=== PATIENT | female | born 1985 | race Caucasian/White ===

== ENCOUNTER 2021-02-01 07:31 | Inpatient (IN) | payer OTHER ==
--- NOTE | 2021-02-01 08:23 | P.HPOB ---
History of Present Illness H&P Date: 02/01/21 Chief Complaint: I'm having a baby This is a 36-year-old white female 2 para 1001 EDC 02/05/2021 at 39-3/7 weeks' gestation. Patient states her labor started and approximately 4:00 this morning. She presented to the triage area with a urge to push. She was uncerta in if her water had broken. Fetus had been active throughout the . Past medical history is significant for asthma and a "muscle disorder". Patient was tested positive for Covid on 01/25/2021. Current medications albuterol inhaler when necessary, carbidopa-levodopa 10/100 mg daily. Past surgical history laparoscopy years ago. Social history patient is , her 's name is Michel. She denies tobacco alcohol or drug use. Past obstetric history patient has followed with a Dr. Mariana Gimenez in [facility] for her care. She is unknown to me or this [facility]. She had a vaginal delivery in August 2018 of a 7 lbs. 8 oz. male infant, uncomplicated. ALLERGIES none known. Family history unremarkable. On exam patient is 5 foot 5 inches, 206 pounds. Vital signs are stable and she is afebrile. In the triage area she has an anterior lip and is very quickly taken to a delivery room. heart tones reassuring. Impression: 39-3/7 weeks intrauterine , care elsewhere, advanced maternal age, recent Covid positive testing, in active labor, delivery imminent. Plan: Anticipate normal spontaneous vaginal delivery. records will be obtained from primary physician's office. Review of Systems Constitutional: Reports as per HPI Past Medical History Past Medical History: Asthma Additional Past Medical History / Comment(s): "muscle disorder" Medications and Allergies Home Medications and Allergies Comment(s): carbidopa-levodopa 10/100 mg daily, albuterol inhaler prn Exam see dictation Assessment and Plan Assessment: 39-3/7 weeks intrauterine , advanced maternal age, delivery imminent. care elsewhere, no records available at this time. Plan: Coated precautions. Anticipate normal spontaneous vaginal delivery.
[2021-02-01] MEDS ORDERED: ACETAMINOPHEN TAB 325 MG TAB PO PRN (08:26)
[2021-02-01] MEDS ORDERED: LANOLIN CREAM 5 GM TUBE TOPICAL PRN (08:26)
[2021-02-01] MEDS ORDERED: diphenhydrAMINE 50 MG CAP PO PRN (08:26)
[2021-02-01] MEDS ORDERED: diphenhydrAMINE 25 MG CAP PO PRN (08:26)
[2021-02-01] MEDS ORDERED: HYDROCORTISONE 2.5% RECTAL CREAM 30 GM TUBE RECTAL PRN (08:26)
[2021-02-01] MEDS ORDERED: diphenhydrAMINE 50 MG/ML 1 ML VIAL IVP PRN ×2 (08:26)
[2021-02-01] MEDS ORDERED: ZOLPIDEM 5 MG TAB PO PRN (08:26)
[2021-02-01] MEDS ORDERED: BENZOCAINE/MENTHOL SPRAY 1 GM/SPRAY AEROSOL TOPICAL PRN (08:26)
[2021-02-01] MEDS ORDERED: SIMETHICONE 80 MG CHEWABLE PO PRN (08:26)
--- NOTE | 2021-02-01 08:26 | P.PROBDLV ---
Vaginal Delivery Note - . Vaginal Delivery Note: This is a 36-year-old white female 2 para 1001 EDC 02/05/2021 at 39-3/7 weeks' gestation. Patient presented in active spontaneous labor. She was tested positive for Covid 5 days ago. care elsewhere, no records available at this time. Please see dictated history and physical for details. In the triage area patient was anterior lip. She was taken to a labor and delivery suite. Perineal body was prepped and draped in usual sterile fashion. With excellent maternal expulsive efforts the 's head delivered occiput anterior and restituted accordingly. There was no nuchal cord noted. The right or anterior shoulder was delivered easily from underneath the pubic symphysis at which time the oropharynx, nasopharynx, and external nares were bulb suctioned. Patient officially delivered a liveborn female infant at 0751 hours. Umbilical cord was doubly clamped and ligated, she was handed to waiting nurses for evaluation where scores of 9 and 9 at one and 5 minutes respectively were given. Infant weighed 3180 g or 7 lbs. 0 oz. Placenta delivered spontaneously, it was inspected and noted to be intact with trivascular cord at 0753 hours. There was a true knot in the cord. It was sent to pathology for further evaluation. The uterus is then massaged. Careful inspection of cervix, vagina, perineum, periurethral, and perirectal areas revealed a small midline first-degree perineal laceration. This was repaired in the usual fashion using 1% lidocaine and 3-0 rapide suture. All sponge needle and enhancement counts are correct. Patient is allowed to begin the bonding experience in the LDR with her infant daughter. records are being requested from primary local owner operator truck driver in [facility].
[2021-02-01] MEDS ORDERED: ALBUTEROL HFA INHALER INHALATION STA (08:38)
[2021-02-01 09:08] VITALS: RESP 16
[2021-02-01] MEDS: IBUPROFEN 600 MG TAB PO SCH ×2 (09:56→17:14)
[2021-02-01] MEDS ORDERED: OXYTOCIN 30 UNITS/500 ML NS 30 UNIT in SALINE 1 500ML.BAG IV SCH (10:45)
[2021-02-01] MEDS: SENNOSIDES-DOCUSATE SODIUM 1 EACH TAB PO SCH (20:38)
[2021-02-02] MEDS: IBUPROFEN 600 MG TAB PO SCH ×4 (01:14→10:34)
[2021-02-02 06:43] LABS: Basophils % (A) 0 %; Eosinophils # (A) 0.2 k/uL (0-0.7); Eosinophils % (A) 1 %; HCT 29.5 % (34.0-46.0); HGB 10.1 gm/dL (11.4-16.0); Lymphocytes # (A) 3.1 k/uL (1.0-4.8); Lymphocytes % (A) 25 %; MCH 28.4 pg (25.0-35.0); MCV 83.6 fL (80.0-100.0); Mean Platelet Volume 8.7; Monocytes # (A) 0.9 k/uL (0-1.0); Monocytes % (A) 7 %; Neutrophils # (A) 8.3 k/uL (1.3-7.7); Neutrophils % (A) 66 %; Platelet Count 244 k/uL (150-450); RBC 3.54 m/uL (3.80-5.40); RDW 14.8 % (11.5-15.5); WBC 12.7 k/uL (3.8-10.6)
[2021-02-02 08:28] VITALS: BP 126/78; PULSE 90; TEMP 98.1
--- NOTE | 2021-02-02 08:36 | P.DS ---
Providers Date of admission: 02/01/21 07:37 Expected date of discharge: 02/02/21 Attending physician: Indira Roberson Primary care physician: Stated None Hospital Course: This is a 36-year-old white female 2 para 1001 EDC 02/05/2021 at 39-3/7 weeks' gestation. Patient received her care at a different institution, but presented here in active labor with anterior rim. She has a history of positive culture testing on 01/25/2021, as has her . otherwise unremarkable, blood type O+, rubella status immune, group B strep cultures negative. Please see dictated history and physical for details. Patient very quickly became completely dilated and vaginally delivered a liveborn female infant with scores of 9 and 9 at one and 5 minutes respectively. Infant weighed 3180 g or 7 lbs. 0 oz. Total estimated blood loss 200 mL, small first-degree perineal laceration easily repaired, please see dictated delivery note for details. This morning the patient and her infant are doing well. The patient is voiding, ambulating, passing flatus without difficulty. Vital signs are stable and she is afebrile. She is doing well from the [place] it perspective, no shortness of breath, respiratory rate 16, pulse ox on room air 97%. Breasts are not engorged. Fundus is firm and in the midline, symmetric and 18 week size. Extremities negative for edema. Patient is judged to be in good condition for d ischarge home. She will follow-up with her own private event planning manager in 6 weeks. I have reminded her no intercourse, tampons or douching. She will use [id number] Advil or Aleve, or Motrin as needed for pain. She will call with any fevers shakes or chills, foul smelling or copious lochia, with the passage of large blood clots, with any pain not alleviated by [id number] products, or i ndeed with any concerns. She will continue isolation at home until 10 days post Covid diagnosis. Assessment: Well day #1 Patient Condition at Discharge: Good Plan - Discharge Summary Discharge Rx Participant: No New Discharge Prescriptions: No Action Carbidopa/Levodopa [Carbidopa-Levodopa 10-100 Tab] 1 each PO Discharge Medication List Carbidopa/Levodopa [Carbidopa-Levodopa 10-100 Tab] 1 each PO 04/08/21 [History] Discharge Disposition: HOME SELF-CARE
[2021-02-02] MEDS: SENNOSIDES-DOCUSATE SODIUM 1 EACH TAB PO SCH (10:33)
== END 2021-02-02 10:50 | disposition home or self-care (01) | DRG 805 ==
LOC: FBPOP 07:31 → 4FBP 07:37
PROVIDERS: ADMIT Obstetrics & Gynecology; ATTEND Obstetrics & Gynecology
PROC: 10E0XZZ Delivery of Products of Conception, External Approach (ICD-10-PCS; principal; 2021-02-01)
PROC: 0HQ9XZZ Repair Perineum Skin, External Approach (ICD-10-PCS; 2021-02-01)
DX: O99.52 Diseases of the respiratory system complicating childbirth (principal); U07.1 COVID-19; Z37.0 Single live birth; O98.52 Other viral diseases complicating childbirth; J45.909 Unspecified asthma, uncomplicated; Z79.899 Other long term (current) drug therapy; O69.2XX0 Labor and delivery complicated by other cord entanglement, with compression, not applicable or unspecified; O70.0 First degree perineal laceration during delivery; Z3A.39 39 weeks gestation of pregnancy
CPT/HCPCS: 85025; 86850; 86900; 86901; 88307

== ENCOUNTER → 2023-01-17 | Outpatient (CLI) | payer OTHER ==
--- NOTE | 2023-01-18 09:44 | US ---
EXAMINATION TYPE: US thyroid st tissue head/neck DATE OF EXAM: 01/17/2023 COMPARISON: NONE CLINICAL HISTORY: R59.0 LOCALIZED ENLARGED LYMPH NODES. GLAND SIZE: Right Lobe: 5.3 x 1.3 x 1.5 cm Overall Parenchyma: homogenous Left Lobe: 5.5 x 1.2 x 1.3 cm Overall Parenchyma: homogeneous Isthmus Thickness: 0.5 cm NODULES RIGHT: # of nodules measured on right: 0 LEFT: # of nodules measured on left: 0 ISTHMUS: # of nodules measured in the isthmus: 0 Bilateral neck scanned, no evidence of lymphadenopathy. Palpable area left upper neck near chin. Patient states she has been on steroids and antibiotics and the palpable has decreased in size. There is an enlarged lymph node noted adjacent to submandibular g land measuring 2.3 x 1.3 cm. IMPRESSION: 1. Normal thyroid ultrasound. 2. There is a prominent lymph node adjacent to the submandibular gland left palpable region
== END | disposition home or self-care (01) ==
LOC: RADUSWWP 16:24
PROVIDERS: ATTEND Family Medicine
DX: R59.0 Localized enlarged lymph nodes (principal)
CPT/HCPCS: 76536

== ENCOUNTER 2024-01-13 11:24 | Inpatient (IN) | payer OTHER ==
--- NOTE | 2024-01-13 12:25 | ED ---
General Adult HPI - General Chief complaint: Upper Respiratory Infection Stated complaint: sob, slight wheezing Time Seen by Provider: 01/13/24 11:38 Source: patient, RN notes reviewed Mode of arrival: ambulatory Limitations: no limitations - History of Present Illness Initial comments: 39-year-old female presents emergency department complaint shortness of breath. Patient states she has a history of asthma. She states that she has been recent on some antibiotics, steroids. Patient states that she continues to have wheezing she states last treatment did not have any relief. She denies any fevers or chills she has slight productive cough. Patient denies abdominal complaints no leg pain leg swelling no history of DVT. - Related Data Home Medications Medication Instructions Recorded Confirmed Carbidopa/Levodopa 1 tab PO DAILY 02/01/21 01/13/24 [Carbidopa-Levodopa 10-100 Tab] Albuterol Nebulized [Ventolin 2.5 mg INHALATION RT-QID PRN 01/13/24 01/13/24 Nebulized] Albuterol Sulfate [Ventolin HFA] 2 puff INHALATION RT-Q4H PRN 01/13/24 01/13/24 Carbidopa-Levodopa 10-100 mg 1 tab PO HS PRN 01/13/24 01/13/24 [Sinemet 10-100] Cetirizine HCl [Zyrtec] 10 mg PO DAILY 01/13/24 01/13/24 Promethazine HCl [Phenergan Syrup] 6.25 mg PO Q6HR PRN 01/13/24 01/13/24 Sertraline [Zoloft] 100 mg PO DAILY 01/13/24 01/13/24 guaiFENesin SYRUP 100MG/5ML 200 mg PO Q6H PRN 01/13/24 01/13/24 [Robitussin] Allergies Allergy/AdvReac Type Severity Reaction Status Date / Time No Known Allergies Allergy Verified 01/13/24 15:39 Review of Systems ROS Statement: Those systems with pertinent positive or pertinent negative responses have been documented in the HPI. ROS Other: All systems not noted in ROS Statement are negative. Past Medical History Past Medical History: Asthma Additional Past Medical History / Comment(s): "muscle disorder" History of Any Multi-Drug Resistant Organisms: None Reported Additional Past Surgical History / Comment(s): Laparoscopy 2015 Past Anesthesia/Blood Transfusion Reactions: No Reported Reaction Past Psychological History: Anxiety Smoking Status: Never smoker Past Alcohol Use History: Occasional Past Drug Use History: None Reported - Past Family History Mother Family Medical History: No Reported History General Exam Limitations: no limitations General appearance: alert, in no apparent distress Head exam: Present: atraumatic, normocephalic, normal inspection ENT exam: Present: normal exam, mucous membranes moist Neck exam: Present: normal inspection. Absent: tenderness, meningismus, lymphadenopathy Respiratory exam: Present: respiratory distress, wheezes. Absent: normal lung sounds bilaterally, rales, rhonchi, stridor Cardiovascular Exam: Present: regular rate, normal rhythm, normal heart sounds. Absent: systolic murmur, diastolic murmur, rubs, gallop, clicks Course Vital Signs 01/13/24 01/13/24 01/13/24 11:38 12:43 12:59 Temperature 98.2 F Pulse Rate 92 80 82 Respiratory 18 Rate Blood Pressure 113/79 O2 Sat by Pulse 96 Oximetry 01/13/24 01/13/24 01/13/24 14:32 15:05 15:27 Temperature 98.3 F Pulse Rate 90 86 87 Respiratory 20 Rate Blood Pressure 126/75 O2 Sat by Pulse 93 L Oximetry 01/13/24 01/13/24 01/13/24 16:00 16:20 16:38 Temperature Pulse Rate 112 H Respiratory Rate Blood Pressure 126/71 O2 Sat by Pulse 91 L 93 L Oximetry 01/13/24 01/13/24 01/13/24 17:00 17:02 17:11 Temperature 98.2 F Pulse Rate 108 H 101 H 111 H Respiratory 22 Rate Blood Pressure 118/73 O2 Sat by Pulse 95 Oximetry 01/13/24 17:59 Temperature 97.8 F Pulse Rate 109 H Respiratory 22 Rate Blood Pressure 128/68 O2 Sat by Pulse 97 Oximetry Medical Decision Making - Medical Decision Making Was pt. sent in by a medical professional or institution (, PA, SEWING MACHINE OPERATOR SEMIAUTOMATIC, urgent care, hospital, or skilled nursing...) When possible be specific @ -No Did you speak to anyone other than the patient for history (EMS, parent, family, police, friend...)? What history was obtained from this source @ -No Did you review nursing and triage notes (agree or disagree)? Why? @ -I reviewed and agree with nursing and triage notes Were old charts reviewed (outside hosp., previous admission, EMS record, old EKG, old radiological studies, urgent care reports/EKG's, skilled nursing records)? Report findings @ -No old charts were reviewed Differential Diagnosis (chest pain, altered mental status, abdominal pain women, abdominal pain men, vaginal bleeding, weakness, fever, dyspnea, syncope, headache, dizziness, GI bleed, back pain, seizure, CVA, palpatations, mental health, musculoskeletal)? @ -Differential Dyspnea: Coronary syndrome, arrhythmia, tamponade, asthma, COPD, pulmonary embolism, pneumonia, pneumothorax, pulmonary effusion, anaphylaxis, diabetic ketoacidosis, flailed chest, pulmonary contusion, diaphragmatic rupture, anemia, neuromuscular, this is not meant to be an all-inclusive list. EKG interpreted by me (3pts min.). @ -None X-rays interpreted by me (1pt min.). @ -Chest x-ray shows no acute cardiopulmonary process. CT interpreted by me (1pt min.). @ -None done U/S interpreted by me (1pt. min.). @ -None done What testing was considered but not performed or refused? (CT, X-rays, U/S, labs)? Why? @ -None What meds were considered but not given or refused? Why? @ -None Did you discuss the management of the patient with other professionals (professionals i.e. , PA, SEWING MACHINE OPERATOR SEMIAUTOMATIC, lab, RT, psych nurse, social welfare clerk, early head start teacher, teacher, juvenile officer, caser shoe parts)? Give summary @ -Dr. Sims for admission secondary to acute asthma exacerbation with minimal improvement with current treatments Was smoking cessation discussed for >3mins.? @ -No Was critical care preformed (if so, how long)? @ -No Were there social determinants of health that impacted care today? How? (Homelessness, low income, unemployed, alcoholism, drug addiction, transportation, low edu. Level, literacy, decrease access to med. care, longterm, r ehab)? @ -No Was there de-escalation of care discussed even if they declined (Discuss DNR or withdrawal of care, Hospice)? DNR status @ -No What co-morbidities impacted this encounter? (DM, HTN, Smoking, COPD, CAD, Cancer, CVA, ARF, Chemo, Hep., AIDS, mental health diagnosis, sleep apnea, morbid obesity)? @ -Asthma Was patient admitted / discharged? Hospital course, mention meds given and route, prescriptions, significant lab abnormalities, going to OR and other pertinent info. @ -Admitted patient is found to have acute asthma exacerbation. Patient x-ray, viral swab was negative. Patient has continuation of diffuse wheezing dyspnea and bronchospasms after multiple breathing treatments, Solu-Medrol, terbutaline, magnesium Undiagnosed new problem with uncertain prognosis? @ -No Drug Therapy requiring intensive monitoring for toxicity (Heparin, Nitro, Insulin, Cardizem)? @ -No Were any procedures done? @ -No Diagnosis/symptom? @ -Asthma exacerbation Acute, or Chronic, or Acute on Chronic? @ -Acute Uncomplicated (without systemic symptoms) or Complicated (systemic symptoms)? @ -Complicated Side effects of treatment? @ -No Exacerbation, Progression, or Severe Exacerbation? @ -Exacerbation Poses a threat to life or bodily function? How? (Chest pain, [place], [place], pneumonia, PE, COPD, DKA, ARF, appy, cholecystitis, CVA, Diverticulitis, Homicidal, Suicidal, threat to staff... and all critical care pts) @ -Yes possible respiratory failure - Lab Data Result diagrams: 01/13/24 12:21 01/13/24 12:21 Lab Results 01/13/24 01/13/24 01/13/24 Range/Units 12:21 12:21 14:06 WBC 13.1 H (3.8-10.6) k/uL RBC 4.44 (3.80-5.40) m/uL Hgb 13.7 (11.4-16.0) gm/dL Hct 42.0 (34.0-46.0) % MCV 94.4 (80.0-100.0) fL MCH 30.9 (25.0-35.0) pg MCHC 32.7 (31.0-37.0) g/dL RDW 12.8 (11.5-15.5) % Plt Count 229 (150-450) k/uL MPV 8.3 Neutrophils % 81 % Lymphocytes % 10 % Monocytes % 4 % Eosinophils % 4 % Basophils % 1 % Neutrophils # 10.5 H (1.3-7.7) k/uL Lymphocytes # 1.3 (1.0-4.8) k/uL Monocytes # 0.5 (0-1.0) k/uL Eosinophils # 0.6 (0-0.7) k/uL Basophils # 0.1 (0-0.2) k/uL Sodium 139 (137-145) mmol/L Potassium 3.6 (3.5-5.1) mmol/L Chloride 107 (98-107) mmol/L Carbon Dioxide 24 (22-30) mmol/L Anion Gap 8 mmol/L BUN 11 (7-17) mg/dL Creatinine 0.67 (0.52-1.04) mg/dL Est GFR (CKD-EPI)AfAm >90 (>60 ml/min/1.73 sqM) Est GFR (CKD-EPI)NonAf >90 (>60 ml/min/1.73 sqM) Glucose 90 (74-99) mg/dL Calcium 8.9 (8.4-10.2) mg/dL Influenza Type A (PCR) Not Detected (Not Detectd) Influenza Type B (PCR) Not Detected (Not Detectd) RSV (PCR) Not Detected (Not Detectd) SARS-CoV-2 (PCR) Not Detected (Not Detectd) Disposition Clinical Impression: Asthma exacerbation Disposition: ADMITTED IP TO THIS HOSP Condition: Good
[2024-01-13 12:29] LABS: Basophils # (A) 0.1 k/uL (0-0.2); Basophils % (A) 1 %; Eosinophils # (A) 0.6 k/uL (0-0.7); Eosinophils % (A) 4 %; HGB 13.7 gm/dL (11.4-16.0); Lymphocytes # (A) 1.3 k/uL (1.0-4.8); Lymphocytes % (A) 10 %; MCH 30.9 pg (25.0-35.0); MCHC 32.7 g/dL (31.0-37.0); MCV 94.4 fL (80.0-100.0); Mean Platelet Volume 8.3; Monocytes # (A) 0.5 k/uL (0-1.0); Monocytes % (A) 4 %; Neutrophils # (A) 10.5 k/uL (1.3-7.7); Neutrophils % (A) 81 %; Platelet Count 229 k/uL (150-450); RBC 4.44 m/uL (3.80-5.40); RDW 12.8 % (11.5-15.5); WBC 13.1 k/uL (3.8-10.6)
[2024-01-13] MEDS: methylPREDNISolone SOD SUCCI 125 MG/2 ML VIAL IV STA (12:32)
[2024-01-13 12:41] LABS: African American GFR (CKD) >90 (>60 ml/min/1.73 sqM); Anion Gap 8 mmol/L; Blood Urea Nitrogen 11 mg/dL (7-17); Calcium 8.9 mg/dL (8.4-10.2); Carbon Dioxide 24 mmol/L (22-30); Chloride 107 mmol/L (98-107); Glucose 90 mg/dL (74-99); Non-African American GFR(CKD) >90 (>60 ml/min/1.73 sqM); Potassium 3.6 mmol/L (3.5-5.1); Sodium 139 mmol/L (137-145)
[2024-01-13] MEDS: IPRATROPIUM-ALBUTEROL 3 ML NEB INHALATION STA (12:43)
--- NOTE | 2024-01-13 13:35 | XR ---
EXAMINATION TYPE: XR chest 2V DATE OF EXAM: 01/13/2024 COMPARISON: NONE TECHNIQUE: PA and lateral views submitted. HISTORY: Shortness of breath FINDINGS: The lungs are clear and there is no pneumothorax, pleural effusion, or focal pneumonia. Heart size normal and no overt failure. Osseous structures demonstrate hypertrophic and degenerative changes of the spine. IMPRESSION: 1. No acute process.
[2024-01-13] MEDS: MAGNESIUM SULFATE-D5W PMX 1 GM in DEXTROSE/WATER 1 100ML.BAG IVPB SCH (14:20)
[2024-01-13] MEDS: TERBUTALINE 1 MG/ML VIAL SQ STA (14:22)
[2024-01-13] MEDS: ALBUTEROL NEBULIZED 2.5 MG/3 ML INHALATION STA (15:04)
[2024-01-13] MEDS ORDERED: NALOXONE 0.4 MG/ML 1 ML VIAL IV PRN (15:29)
[2024-01-13] MEDS ORDERED: ACETAMINOPHEN TAB 325 MG TAB PO PRN (15:29)
[2024-01-13] MEDS ORDERED: ONDANSETRON 4 MG/2 ML VIAL IVP PRN (15:29)
--- NOTE | 2024-01-13 15:54 | P.HPIM ---
History of Present Illness H&P Date: 01/13/24 39-year-old female with PMH of asthma, depression and dystonia presents the ED for shortness of breath. She was seen at urgent care on December 26 for cough, started on steroids and azithromycin. Initially improved but her cough returned along with SOB and wheezing not relieved with nebulized treatments at home which prompted her to come to the ED today. Cough is productive of sputum not able to describe. Never been intubated. Non smoker. In the ED, she underwent extensive evaluation. BP 126/75, HR 90, RR 20, T 98.3F, 93% on RA. CBC and BMP done significant for WBC count 13.1 with neutrophilia. Chest x-ray unremarkable. Patient is admitted for asthma exacerbation with pulmonology in consultation. General: non toxic, no distress, appears at stated age Derm: warm, dry Head: atraumatic, normocephalic, symmetric Eyes: EOMI, no lid lag, anicteric sclera Mouth: no lip lesion, mucus membranes moist Cardiovascular: S1S2 tachy, no murmur Lungs: Diffuse expiratory wheezing bilateral, no rhonchi, no rales , no accessory muscle use Ext: no gross muscle atrophy, no edema, no contractures Neuro: no focal neuro deficits Psych: Alert, oriented, appropriate affect Based on my assessment of this patient, this patient meets a high complexity level of care. Patient has an acute diagnosis of asthma exacerbation that poses a threat to life or bodily function. Asthma exacerbation: DuoNeb QID scheduled and Q2H PRN for SOB/wheezing. Solumedrol 60 mg IV Q8H. Telemetry monitoring. Pulmonary consult. Leukocytosis: No signs of active infection. Leukocytosis likely steroid induced from urgent care visit. Monitor fever profile. Obesity: Structured weight loss program. Chronic conditions: Depression, Dystonia CODE STATUS: FULL CODE. DVT Prophylaxis: SCD GI Prophylaxis: Protonix PO Designated medical POA if patient is not able to make medical decisions for themselves: I have reviewed the following nurse consultant notes: ED I have reviewed the results of the following tests: As above I have ordered the following tests: As above I have discussed the care of this patient with the following independent historian: I have independently interpreted the following test below: CXR I have discussed the management of this patient with the following physician: ED physician Past Medical History Past Medical History: Asthma Additional Past Medical History / Comment(s): "muscle disorder" History of Any Multi-Drug Resistant Organisms: None Reported Additional Past Surgical History / Comment(s): Laparoscopy 2015 Past Anesthesia/Blood Transfusion Reactions: No Reported Reaction Past Psychological History: Anxiety Smoking Status: Never smoker Past Alcohol Use History: Occasional Past Drug Use History: None Reported - Past Family History Mother Family Medical History: No Reported History Medications and Allergies Home Medications Medication Instructions Recorded Confirmed Type Carbidopa/Levodopa 1 tab PO DAILY 02/01/21 01/13/24 History [Carbidopa-Levodopa 10-100 Tab] Albuterol Nebulized [Ventolin 2.5 mg INHALATION RT-QID PRN 01/13/24 01/13/24 History Nebulized] Albuterol Sulfate [Ventolin HFA] 2 puff INHALATION RT-Q4H PRN 01/13/24 01/13/24 History Carbidopa-Levodopa 10-100 mg 1 tab PO HS PRN 01/13/24 01/13/24 History [Sinemet 10-100] Cetirizine HCl [Zyrtec] 10 mg PO DAILY 01/13/24 01/13/24 History Promethazine HCl [Phenergan Syrup] 6.25 mg PO Q6HR PRN 01/13/24 01/13/24 History Sertraline [Zoloft] 100 mg PO DAILY 01/13/24 01/13/24 History guaiFENesin SYRUP 100MG/5ML 200 mg PO Q6H PRN 01/13/24 01/13/24 History [Robitussin] Allergies Allergy/AdvReac Type Severity Reaction Status Date / Time No Known Allergies Allergy Verified 01/13/24 15:39 Physical Exam Vitals: Vital Signs Temp Pulse Resp BP Pulse Ox 01/13/24 15:27 87 01/13/24 15:05 86 01/13/24 14:32 98.3 F 90 20 126/75 93 L 01/13/24 12:59 82 01/13/24 12:43 80 01/13/24 11:38 98.2 F 92 18 113/79 96 Intake and Output 01/13/24 01/13/24 01/13/24 06:59 14:59 22:59 Other: Weight 92.079 kg Results CBC & Chem 7: 01/13/24 12:21 01/13/24 12:21 Labs: Abnormal Lab Results - Last 24 Hours (Table) 01/13/24 Range/Units 12:21 WBC 13.1 H (3.8-10.6) k/uL Neutrophils # 10.5 H (1.3-7.7) k/uL
[2024-01-13] MEDS: IPRATROPIUM-ALBUTEROL 3 ML NEB INHALATION PRN ×2 (17:02→20:34)
[2024-01-13] MEDS: methylPREDNISolone SOD SUCCI 125 MG/2 ML VIAL IV SCH ×2 (17:24→20:17)
[2024-01-13] MEDS: SODIUM CHLORIDE 0.9% 1,000 ML IV STA (17:35)
[2024-01-13] MEDS: SODIUM CHLORIDE 0.9% 500 ML 500 ML IV STA (17:35)
[2024-01-13] MEDS: LORazepam 2 MG/ML INJ IV STA (17:41)
[2024-01-13 18:02] LABS: Magnesium 2.6 mg/dL (1.6-2.3); Phosphorus 1.4 mg/dL (2.5-4.5)
[2024-01-13] MEDS ORDERED: methylPREDNISolone SOD SUCCI 125 MG/2 ML VIAL IV SCH (20:00)
[2024-01-13] MEDS: SODIUM CHLORIDE 0.9% 1,000 ML IV SCH (20:18)
[2024-01-13] MEDS: SYMBICORT 160-4.5 MCG INHALER INHALATION SCH (20:34)
--- NOTE | 2024-01-13 21:45 | P.CNPUL ---
History of Present Illness Consult date: 01/13/24 Reason for consult: asthma History of present illness: This is a 39-year-old female patient with known history of bronchial asthma that has been essentially mild intermittent in nature and the patient has been utilizing for rescue needed on as-needed basis. She has not been maintained on regular asthma medication. No intake of any inhaled corticosteroids on outpatient basis. She is a non-smoker. She has noted environmental allergies mainly towards animal dander and dust and mold and grass. She has several pets at home including cats. The patient started getting sick approximately 3 weeks ago. She was trying to find an outpatient basis. She has been seen in urgent care and no definitive treatment has been offered. She had albuterol requirements has been significantly increased. She came into the emergency for further evaluation and the patient was hospitalized for an acute asthma exacerbation as the patient was found to be acutely bronchospastic and wheezy. Chest x-ray showed no acute cardiopulmonary abnormalities. The patient has a white cell count of 17.0 and hemoglobin 13.7. Sodium is at 139 with a potassium level is 3.6 and a BUN of 11 with a creatinine of 0.6. Viral panel has been negative. D-dimer is at 0.37. The patient is currently on bronchodilators and steroids. She is known to have dystonia maintained on Sinemet. No previous hospitalization due to asthma related complications. No previous steroid intake. No previous history of intubation or mechanical ventilation related to asthma. No recurrent pneumonias. Review of Systems Constitutional: Denies chills, Denies fever Eyes: denies as per HPI, denies blurred vision, denies bulging eye, denies decreased vision, denies diplopia, denies discharge, denies dry eye, denies irri tation, denies itching, denies pain, denies photophobia, denies loss of peripheral vision, denies loss of vision, denies tunnel vision/blind spots Ears: deny: decreased hearing, ear discharge, earache, tinnitus Ears, nose, mouth and throat: Reports as per HPI Breasts: absent: as per HPI, change in shape, gynecomastia, masses, nipple discharge, pain, skin changes, swelling Cardiovascular: Reports decreased exercise tolerance, Reports dyspnea on exertion Respiratory: Reports cough, Reports dyspnea, Reports wheezing Genitourinary: Reports as per HPI Menstruation: Reports as per HPI Musculoskeletal: Reports as per HPI Musculoskeletal: absent: ankle pain, ankle stiffness, ankle swelling Integumentary: Reports as per HPI Neurological: Reports as per HPI (History of dystonia) Psychiatric: Reports as per HPI Endocrine: Reports as per HPI Hematologic/Lymphatic: Reports as per HPI Past Medical History Past Medical History: Asthma Additional Past Medical History / Comment(s): Dystonia , anxiety, obesity History of Any Multi-Drug Resistant Organisms: None Reported Additional Past Surgical History / Comment(s): Laparoscopy 2015 Past Anesthesia/Blood Transfusion Reactions: No Reported Reaction Past Psychological History: Anxiety Smoking Status: Never smoker Past Alcohol Use History: Occasional Past Drug Use History: None Reported - Past Family History Mother Family Medical History: No Reported History Medications and Allergies Home Medications Medication Instructions Recorded Confirmed Type Carbidopa/Levodopa 1 tab PO DAILY 02/01/21 01/13/24 History [Carbidopa-Levodopa 10-100 Tab] Albuterol Nebulized [Ventolin 2.5 mg INHALATION RT-QID PRN 01/13/24 01/13/24 History Nebulized] Albuterol Sulfate [Ventolin HFA] 2 puff INHALATION RT-Q4H PRN 01/13/24 01/13/24 History Carbidopa-Levodopa 10-100 mg 1 tab PO HS PRN 01/13/24 01/13/24 History [Sinemet 10-100] Cetirizine HCl [Zyrtec] 10 mg PO DAILY 01/13/24 01/13/24 History Promethazine HCl [Phenergan Syrup] 6.25 mg PO Q6HR PRN 01/13/24 01/13/24 History Sertraline [Zoloft] 100 mg PO DAILY 01/13/24 01/13/24 History guaiFENesin SYRUP 100MG/5ML 200 mg PO Q6H PRN 01/13/24 01/13/24 History [Robitussin] Allergies Allergy/AdvReac Type Severity Reaction Status Date / Time No Known Allergies Allergy Verified 01/13/24 15:39 Physical Exam Vitals: Vital Signs Temp Pulse Pulse Resp BP BP Pulse Ox 01/13/24 18:21 98.3 F 112 H 24 120/73 94 L 01/13/24 17:59 97.8 F 109 H 22 128/68 97 01/13/24 17:11 111 H 01/13/24 17:02 101 H 01/13/24 17:00 98.2 F 108 H 22 118/73 95 01/13/24 16:38 93 L 01/13/24 16:20 91 L 01/13/24 16:00 112 H 126/71 01/13/24 15:27 87 01/13/24 15:05 86 01/13/24 14:32 98.3 F 90 20 126/75 93 L 01/13/24 12:59 82 01/13/24 12:43 80 01/13/24 11:38 98.2 F 92 18 113/79 96 Intake and Output 01/13/24 01/13/24 01/13/24 06:59 14:59 22:59 Other: Voiding Method Toilet Weight 92.079 kg General appearance the patient is calm and comfortable no acute distress. Not using accessory muscles of breathing. Head exam was generally normal. There was no scleral icterus or corneal arcus. Mucous membranes were moist. Neck was supple and without jugular venous distension, thyromegaly, or carotid bruits. Carotids were easily palpable bilaterally. There was no adenopathy. Lung sounds are diminished and the patient has scattered diffuse expiratory wheezes throughout the lung mcdaniels bilaterally. Cardiac exam revealed the PMI to be normally situated and sized. The rhythm was regular and no extrasystoles were noted during several minutes of auscultation. The first and second heart sounds were normal and physiologic splitting of the second heart sound was noted. There were no murmurs, rubs, clicks, or gallops. Abdominal exam revealed normal bowel sounds. The abdomen was soft, non-tender, and without masses, organomegaly, or appreciable enlargement of the abdominal aorta. Examination of the extremities revealed easily palpable radial, femoral and pedal pulses. There was no cyanosis, clubbing or edema. Examination of the skin revealed no evidence of significant rashes, suspicious appearing nevi or other concerning lesions. Neurologically, the patient is awake and alert and the patient does not have any focal neurological deficit. Cranial nerves are essentially intact. Results - Laboratory Findings CBC and BMP: 01/13/24 12:21 01/13/24 12:21 ABG WBC 13.1 k/uL (3.8-10.6) H 01/13/24 12:21 RBC 4.44 m/uL (3.80-5.40) 01/13/24 12:21 Hgb 13.7 gm/dL (11.4-16.0) 01/13/24 12:21 Hct 42.0 % (34.0-46.0) 01/13/24 12:21 MCV 94.4 fL (80.0-100.0) 01/13/24 12:21 MCH 30.9 pg (25.0-35.0) 01/13/24 12:21 MCHC 32.7 g/dL (31.0-37.0) 01/13/24 12:21 RDW 12.8 % (11.5-15.5) 01/13/24 12:21 Plt Count 229 k/uL (150-450) 01/13/24 12:21 MPV 8.3 01/13/24 12:21 Neutrophils % 81 % 01/13/24 12:21 Lymphocytes % 10 % 01/13/24 12:21 Monocytes % 4 % 01/13/24 12:21 Eosinophils % 4 % 01/13/24 12:21 Basophils % 1 % 01/13/24 12:21 Neutrophils # 10.5 k/uL (1.3-7.7) H 01/13/24 12:21 Lymphocytes # 1.3 k/uL (1.0-4.8) 01/13/24 12:21 Monocytes # 0.5 k/uL (0-1.0) 01/13/24 12:21 Eosinophils # 0.6 k/uL (0-0.7) 01/13/24 12:21 Basophils # 0.1 k/uL (0-0.2) 01/13/24 12:21 D-Dimer 0.37 mg/L FEU (<0.60) 01/13/24 17:38 Sodium 139 mmol/L (137-145) 01/13/24 12:21 Potassium 3.6 mmol/L (3.5-5.1) 01/13/24 12:21 Chloride 107 mmol/L (98-107) 01/13/24 12:21 Carbon Dioxide 24 mmol/L (22-30) 01/13/24 12:21 Anion Gap 8 mmol/L 01/13/24 12:21 BUN 11 mg/dL (7-17) 01/13/24 12:21 Creatinine 0.67 mg/dL (0.52-1.04) 01/13/24 12:21 Est GFR (CKD-EPI)AfAm >90 (>60 ml/min/1.73 sqM) 01/13/24 12:21 Est GFR (CKD-EPI)NonAf >90 (>60 ml/min/1.73 sqM) 01/13/24 12:21 Glucose 90 mg/dL (74-99) 01/13/24 12:21 Calcium 8.9 mg/dL (8.4-10.2) 01/13/24 12:21 Phosphorus 1.4 mg/dL (2.5-4.5) L 01/13/24 17:38 Magnesium 2.6 mg/dL (1.6-2.3) H 01/13/24 17:38 Influenza Type A (PCR) Not Detected (Not Detectd) 01/13/24 14:06 Influenza Type B (PCR) Not Detected (Not Detectd) 01/13/24 14:06 RSV (PCR) Not Detected (Not Detectd) 01/13/24 14:06 SARS-CoV-2 (PCR) Not Detected (Not Detectd) 01/13/24 14:06 PT/INR, D-dimer D-Dimer 0.37 mg/L FEU (<0.60) 01/13/24 17:38 Abnormal lab findings: Abnormal Labs 01/13/24 01/13/24 12:21 17:38 WBC 13.1 H Neutrophils # 10.5 H Phosphorus 1.4 L Magnesium 2.6 H - Diagnostic Findings Chest x-ray: image reviewed Assessment and Plan Plan: Acute exacerbation of mild intermittent bronchial asthma. Exact cause is not clear. Viral panel has been negative and the patient has been symptomatic for the past several weeks time and she failed outpatient treatment. Chest x-ray shows no evidence of any acute cardiopulmonary process. Acute on chronic shortness of breath secondary to asthma exacerbation Acute hypoxic respiratory failure secondary to above, and the patient is currently on 2 L of O2 nasal cannula Known history of developmental allergies. No nasal polyposis. No eczema. Dystonia, history of and the patient has been maintained on Sinemet Plan Will optimize the asthma exacerbation Titrate oxygen flow to maintain saturation above 90% currently on 2 L IV Solu-Medrol 60 mg every 6 hours Kassandrab updrafts [id number] 4 times a day Start Symbicort maintenance 160/4.5, 2 puffs twice a day Will need further workup on outpatient basis regarding her asthma. Will further establish her asthmatic endotype and modify treatment accordingly Will continue to follow.
[2024-01-14] MEDS: guaiFENesin-DM 100-10MG/5ML 10 ML CUP PO PRN (02:27)
[2024-01-14] MEDS: PANTOPRAZOLE 40 MG TABLET PO SCH (06:50)
[2024-01-14] MEDS: SERTRALINE 100 MG TAB PO SCH (09:09)
[2024-01-14] MEDS: LORATADINE 10 MG TAB PO SCH (09:09)
[2024-01-14] MEDS: CARBIDOPA-LEVODOPA 10-100 MG 1 EACH TAB PO SCH (09:09)
[2024-01-14] MEDS: MONTELUKAST 10 MG TAB PO SCH (09:43)
--- NOTE | 2024-01-14 11:01 | P.PN ---
Subjective Progress Note Date: 01/14/24 39-year-old female with PMH of asthma, depression and dystonia presents the ED for shortness of breath. She was seen at urgent care on December 26 for cough, started on steroids and azithromycin. Initially improved but her cough returned along with SOB and wheezing not relieved with nebulized treatments at home which prompted her to come to the ED today. Cough is productive of sputum not able to describe. Never been intubated. Non smoker. In the ED, she underwent extensive evaluation. BP 126/75, HR 90, RR 20, T 98.3F, 93% on RA. CBC and BMP done significant for WBC count 13.1 with neutrophilia. Chest x-ray unremarkable. Patient is admitted for asthma exacerbation with pulmonology in consultation. Started on bronchodilators and steroids. Pulmonary consulted. 01/13 Patient was seen and examined. Slightly improved breathing, not quite back to baseline. Chest still feels tight. Remains tachycardic with HR in the low 100s and 91% on 3L. D-Dimer negative. Phos 1.4. Mag 2.6. Discussed with Dr. Vasquez nunez, continue present management. General: non toxic, no distress, appears at stated age Derm: warm, dry Head: atraumatic, normocephalic, symmetric Eyes: EOMI, no lid lag, anicteric sclera Mouth: no lip lesion, mucus membranes moist Cardiovascular: S1S2 tachy, no murmur Lungs: Diffuse expiratory wheezing bilateral, no rhonchi, no rales , no accessory muscle use Ext: no gross muscle atrophy, no edema, no contractures Neuro: no focal neuro deficits Psych: Alert, oriented, appropriate affect Based on my assessment of this patient, this patient meets a high complexity level of care. Patient has an acute diagnosis of asthma exacerbation that poses a threat to life or bodily function. Asthma exacerbation: DuoNeb QID scheduled and Q2H PRN for SOB/wheezing. Solumedrol 60 mg IV Q8H. Symbicort 2 puff BID. Add Singulair 10 mg PO QD. Telemetry monitoring. Pulmonary on board. Leukocytosis: No signs of active infection. Leukocytosis likely steroid induced from urgent care visit. Monitor fever profile. Obesity: Structured weight loss program. Chronic conditions: Depression, Dystonia CODE STATUS: FULL CODE. DVT Prophylaxis: SCD GI Prophylaxis: Protonix PO Designated medical POA if patient is not able to make medical decisions for themselves: I have reviewed the following strategic solutions consultant notes: Pulmonary. I have reviewed the results of the following tests: Mag, Phos. I have ordered the following tests: I have discussed the care of this patient with the following independent historian: I have independently interpreted the following test below: I have discussed the management of this patient with the following physician: Dr. Cuello. Objective - Vital Signs Vital signs: Vital Signs Temp 98.1 F 01/14/24 07:34 Pulse 96 01/14/24 08:33 Resp 19 01/14/24 07:34 BP 117/68 01/14/24 07:34 Pulse Ox 91 L 01/14/24 08:22 FiO2 Intake & Output 01/13/24 01/14/24 01/14/24 18:59 06:59 18:59 Weight 92.079 kg 92.079 kg Other: Voiding Method Toilet # Voids 3 - Labs CBC & Chem 7: 01/13/24 12:21 01/13/24 12:21 Labs: Abnormal Lab Results - Last 24 Hours (Table) 01/13/24 01/13/24 Range/Units 12:21 17:38 WBC 13.1 H (3.8-10.6) k/uL Neutrophils # 10.5 H (1.3-7.7) k/uL Phosphorus 1.4 L (2.5-4.5) mg/dL Magnesium 2.6 H (1.6-2.3) mg/dL
--- NOTE | 2024-01-14 12:19 | P.PN ---
Subjective Progress Note Date: 01/14/24 This is a 39-year-old female patient with known history of bronchial asthma that has been essentially mild intermittent in nature and the patient has been utilizing for rescue needed on as-needed basis. She has not been maintained on regular asthma medication. No intake of any inhaled corticosteroids on outpatient basis. She is a non-smoker. She has noted environmental allergies mainly towards animal dander and dust and mold and grass. She has several pets at home including cats. The patient started getting sick approximately 3 weeks ago. She was trying to find an outpatient basis. She has been seen in urgent care and no definitive treatment has been offered. She had albuterol requiremen ts has been significantly increased. She came into the emergency for further evaluation and the patient was hospitalized for an acute asthma exacerbation as the patient was found to be acutely bronchospastic and wheezy. Chest x-ray showed no acute cardiopulmonary abnormalities. The patient has a white cell count of 17.0 and hemoglobin 13.7. Sodium is at 139 with a potassium level is 3.6 and a BUN of 11 with a creatinine of 0.6. Viral panel has been negative. D-dimer is at 0.37. The patient is currently on bronchodilators and steroids. She is known to have dystonia maintained on Sinemet. No previous hospitalization due to asthma related complications. No previous steroid intake. No previous history of intubation or mechanical ventilation related to asthma. No recurrent pneumonias. On today's evaluation of 01/14/2024, the patient is feeling better and less short of breath compared to yesterday. There has been some modest improvement since yesterday. She was hospitalized for an acute asthma exacerbation that has failed outpatient treatment and the patient is having to be treated with a combination of bronchodilators and steroids. She is currently on Solu-Medrol 60 mg every 6 hours. She was also started on Symbicort as maintenance. Viral screen has been negative. D-dimer is at 0.37. No other new complaints otherwise for now. Oxygenation is still impaired and the patient remains on 3 L to maintain a saturation above 90%. Extensively bronchospastic and wheezy on today's evaluation with some modest improvement Objective - Vital Signs Vital signs: Vital Signs Temp 98.1 F 01/14/24 07:34 Pulse 96 01/14/24 08:33 Resp 19 01/14/24 07:34 BP 117/68 01/14/24 07:34 Pulse Ox 91 L 01/14/24 08:22 FiO2 Intake & Output 01/13/24 01/14/24 01/14/24 18:59 06:59 18:59 Weight 92.079 kg 92.079 kg Other: Voiding Method Toilet # Voids 3 - Exam General appearance the patient is calm and comfortable no acute distress. Not using accessory muscles of breathing. Head exam was generally normal. There was no scleral icterus or corneal arcus. Mucous membranes were moist. Neck was supple and without jugular venous distension, thyromegaly, or carotid bruits. Carotids were easily palpable bilaterally. There was no adenopathy. Lung sounds are diminished and the patient has scattered diffuse expiratory wheezes throughout the lung mcdaniels bilaterally. Cardiac exam revealed the PMI to be normally situated and sized. The rhythm was regular and no extrasystoles were noted during several minutes of auscultation. The first and second heart sounds were normal and physiologic splitting of the second heart sound was noted. There were no murmurs, rubs, clicks, or gallops. Abdominal exam revealed normal bowel sounds. The abdomen was soft, non-tender, and without masses, organomegaly, or appreciable enlargement of the abdominal aorta. Examination of the extremities revealed easily palpable radial, femoral and pedal pulses. There was no cyanosis, clubbing or edema. Examination of the skin revealed no evidence of significant rashes, suspicious appearing nevi or other concerning lesions. Neurologically, the patient is awake and alert and the patient does not have any focal neurological deficit. Cranial nerves are essentially intact. - Labs CBC & Chem 7: 01/13/24 12:21 01/13/24 12:21 Labs: Abnormal Lab Results - Last 24 Hours (Table) 01/13/24 01/13/24 Range/Units 12:21 17:38 WBC 13.1 H (3.8-10.6) k/uL Neutrophils # 10.5 H (1.3-7.7) k/uL Phosphorus 1.4 L (2.5-4.5) mg/dL Magnesium 2.6 H (1.6-2.3) mg/dL Assessment and Plan Plan: Acute exacerbation of mild intermittent bronchial asthma. Exact cause is not clear. Viral panel has been negative and the patient has been symptomatic for the past several weeks time and she failed outpatient treatment. Chest x-ray s hows no evidence of any acute cardiopulmonary process. Acute on chronic shortness of breath secondary to asthma exacerbation Acute hypoxic respiratory failure secondary to above, and the patient is currently on 2 L of O2 nasal cannula Known history of developmental allergies. No nasal polyposis. No eczema. Dystonia, history of and the patient has been maintained on Sinemet Plan Will optimize the asthma exacerbation, the patient continues to be clinically symptomatic with some modest improvement since yesterday. Titrate oxygen flow to maintain saturation above 90% currently on 2 L-3 L and the patient should be able to wean off and come off the oxygen. IV Solu-Medrol 60 mg every 6 [id number] a day Continue Symbicort maintenance 160/4.5, 2 puffs twice a day Will need further workup on outpatient basis regarding her asthma. Will further establish her asthmatic endotype and modify treatment accordingly Will continue to follow.
[2024-01-15] MEDS ORDERED: Phosphorus Replacement Protoco 1 EACH MISC MISCELLANE PRN (14:14)
[2024-01-15] MEDS: POTAS-SOD-PHOS 278-164-250 MG 1 EACH PACKET PO ONE (14:51)
--- NOTE | 2024-01-15 16:32 | P.PN ---
Subjective Progress Note Date: 01/15/24 Patient is on room air, but still quite tachypneic/tachycardic with exercise/exertion. Denies fevers, chills, chest pain. Gen: In NAD, non-toxic HEENT: normocephalic, atraumatic, hearing acuity is intant, mucous membranes moist CVS: perfusing all extremities well, no pitting edema, Respiratory: symmetric chest expansion, no accessory muscle use, diffuse wheezing GI: soft, NTTP, ND, : no suprapubic tenderness, no CVA tenderness MSK/Derm: no rashes, cyanosis Neuro: CN II-XII intact, no motor weakness, Psych: cooperative, euthymic mood, judgment and insight is intact Hospital course: 39-year-old female with PMH of asthma, depression and dystonia presents the ED for shortness of breath. She was seen at urgent care on December 26 for cough, started on steroids and azithromycin. Initially improved but her cough returned along with SOB and wheezing not relieved with nebulized treatments at home which prompted her to come to the ED today. Cough is productive of sputum not able to describe. Never been intubated. Non smoker. In the ED, she underwent extensive evaluation. BP 126/75, HR 90, RR 20, T 98.3F, 93% on RA. CBC and BMP done significant for WBC count 13.1 with neutrophilia. Chest x-ray unremarkable. Patient is admitted for asthma exacerbation with pulmonology in consultation. Started on bronchodilators and steroids. Pulmonary consulted. 01/13 Patient was seen and examined. Slightly improved breathing, not quite back to baseline. Chest still feels tight. Remains tachycardic with HR in the low 100s and 91% on 3L. D-Dimer negative. Phos 1.4. Mag 2.6. Discussed with Dr. Bernardino lehman, continue present management. Assessment/plan: Asthma exacerbation: -DuoNeb QID scheduled and Q2H PRN for SOB/wheezing. -Solumedrol 60 mg IV Q8H. Symbicort 2 puff BID. -Add Singulair 10 mg PO QD. -Telemetry monitoring. -Pulmonary on board. Obesity: -Structured weight loss program. Chronic conditions: Depression, Dystonia CODE STATUS: FULL CODE. DVT Prophylaxis: SCD GI Prophylaxis: Protonix PO Designated medical POA if patient is not able to make medical decisions for themselves: Objective - Vital Signs Vital signs: Vital Signs Temp 98.1 F 01/15/24 14:00 Pulse 100 01/15/24 15:27 Resp 18 01/15/24 14:00 BP 126/80 01/15/24 14:00 Pulse Ox 93 L 01/15/24 14:00 FiO2 Intake & Output 01/14/24 01/15/24 01/15/24 18:59 06:59 18:59 Other: Voiding Method Toilet Toilet # Voids 4 2 - Labs CBC & Chem 7: 01/13/24 12:21 01/13/24 12:21
--- NOTE | 2024-01-15 17:51 | P.PN ---
Subjective Progress Note Date: 01/15/24 This is a 39-year-old female patient with known history of bronchial asthma that has been essentially mild intermittent in nature and the patient has been utilizing for rescue needed on as-needed basis. She has not been maintained on regular asthma medication. No intake of any inhaled corticosteroids on outpatient basis. She is a non-smoker. She has noted environmental allergies mainly towards animal dander and dust and mold and grass. She has several pets at home including cats. The patient started getting sick approximately 3 weeks ago. She was trying to find an outpatient basis. She has been seen in urgent care and no definitive treatment has been offered. She had albuterol requiremen ts has been significantly increased. She came into the emergency for further evaluation and the patient was hospitalized for an acute asthma exacerbation as the patient was found to be acutely bronchospastic and wheezy. Chest x-ray showed no acute cardiopulmonary abnormalities. The patient has a white cell count of 17.0 and hemoglobin 13.7. Sodium is at 139 with a potassium level is 3.6 and a BUN of 11 with a creatinine of 0.6. Viral panel has been negative. D-dimer is at 0.37. The patient is currently on bronchodilators and steroids. She is known to have dystonia maintained on Sinemet. No previous hospitalization due to asthma related complications. No previous steroid intake. No previous history of intubation or mechanical ventilation related to asthma. No recurrent pneumonias. On today's evaluation of 01/14/2024, the patient is feeling better and less short of breath compared to yesterday. There has been some modest improvement since yesterday. She was hospitalized for an acute asthma exacerbation that has failed outpatient treatment and the patient is having to be treated with a combination of bronchodilators and steroids. She is currently on Solu-Medrol 60 mg every 6 hours. She was also started on Symbicort as maintenance. Viral screen has been negative. D-dimer is at 0.37. No other new complaints otherwise for now. Oxygenation is still impaired and the patient remains on 3 L to maintain a saturation above 90%. Extensively bronchospastic and wheezy on today's evaluation with some modest improvement On today's evaluation of 01/15/2024, the patient is feeling slightly improved compared to yesterday. No new complaints otherwise for now. Remains on the same management of bronchodilators and steroids. D-dimer is at 0.37. Viral panel has been negative. Remains on IV Solu-Medrol 60 mg every 6 hours. Remains on DuoNeb. She is currently on room air oxygen as the patient is being treated for an acute asthma exacerbation. Pulse ox is 93% room air oxygen. Objective - Vital Signs Vital signs: Vital Signs Temp 97.4 F L 01/15/24 08:00 Pulse 87 01/15/24 08:06 Resp 19 01/15/24 08:00 BP 107/73 01/15/24 08:00 Pulse Ox 90 L 01/15/24 08:00 FiO2 Intake & Output 01/14/24 01/15/24 01/15/24 18:59 06:59 18:59 Other: Voiding Method Toilet Toilet # Voids 4 2 - Exam General appearance the patient is calm and comfortable no acute distress. Not using accessory muscles of breathing. Head exam was generally normal. There was no scleral icterus or corneal arcus. Mucous membranes were moist. Neck was supple and without jugular venous distension, thyromegaly, or carotid bruits. Carotids were easily palpable bilaterally. There was no adenopathy. Lung sounds are diminished and the patient has scattered diffuse expiratory wheezes throughout the lung mcdaniels bilaterally. Cardiac exam revealed the PMI to be normally situated and sized. The rhythm was regular and no extrasystoles were noted during several minutes of auscultation. The first and second heart sounds were normal and physiologic splitting of the second heart sound was noted. There were no murmurs, rubs, clicks, or gallops. Abdominal exam revealed normal bowel sounds. The abdomen was soft, non-tender, and without masses, organomegaly, or appreciable enlargement of the abdominal aorta. Examination of the extremities revealed easily palpable radial, femoral and pedal pulses. There was no cyanosis, clubbing or edema. Examination of the skin revealed no evidence of significant rashes, suspicious appearing nevi or other concerning lesions. Neurologically, the patient is awake and alert and the patient does not have any focal neurological deficit. Cranial nerves are essentially intact. - Labs CBC & Chem 7: 01/13/24 12:21 01/13/24 12:21 Assessment and Plan Plan: Acute exacerbation of mild intermittent bronchial asthma. Exact cause is not cl ear. Viral panel has been negative and the patient has been symptomatic for the past several weeks time and she failed outpatient treatment. Chest x-ray shows no evidence of any acute cardiopulmonary process. Will continue same treatment for now. Slowly improving. Acute on chronic shortness of breath secondary to asthma exacerbation Acute hypoxic respiratory failure secondary to above, patient is currently on room air oxygen. Known history of developmental allergies. No nasal polyposis. No eczema. Dystonia, history of and the patient has been maintained on Sinemet Plan Slightly improved compared to admission will be kept on the same treatment for now. Titrate oxygen flow to maintain saturation above 90% currently on 2 L-3 L and the patient should be able to wean off and come off the oxygen. IV Solu-Medrol 60 mg every 6 hours DuoNeb [id number] 4 times a day Continue Symbicort maintenance 160/4.5, 2 puffs twice a day Will need further workup on outpatient basis regarding her asthma. Will further establish her asthmatic endotype and modify treatment accordingly Will continue to follow.
[2024-01-15] MEDS: CARBIDOPA-LEVODOPA 10-100 MG 1 EACH TAB PO PRN (22:18)
[2024-01-16 08:16] LABS: Basophils % (A) 0 %; Eosinophils % (A) 0 %; HCT 41.8 % (34.0-46.0); HGB 13.5 gm/dL (11.4-16.0); Lymphocytes # (A) 1.6 k/uL (1.0-4.8); Lymphocytes % (A) 8 %; MCHC 32.4 g/dL (31.0-37.0); MCV 95.5 fL (80.0-100.0); Mean Platelet Volume 8.6; Monocytes # (A) 0.4 k/uL (0-1.0); Monocytes % (A) 2 %; Neutrophils # (A) 18.3 k/uL (1.3-7.7); Neutrophils % (A) 90 %; Platelet Count 301 k/uL (150-450); RBC 4.37 m/uL (3.80-5.40); RDW 13.5 % (11.5-15.5); WBC 20.5 k/uL (3.8-10.6)
[2024-01-16 12:08] LABS: African American GFR (CKD) >90 (>60 ml/min/1.73 sqM); Anion Gap 9 mmol/L; Blood Urea Nitrogen 16 mg/dL (7-17); Calcium 9.2 mg/dL (8.4-10.2); Carbon Dioxide 23 mmol/L (22-30); Chloride 106 mmol/L (98-107); Glucose 118 mg/dL (74-99); Magnesium 2.5 mg/dL (1.6-2.3); Non-African American GFR(CKD) >90 (>60 ml/min/1.73 sqM); Potassium 5.1 mmol/L (3.5-5.1); Sodium 138 mmol/L (137-145)
--- NOTE | 2024-01-16 14:46 | P.PN ---
Subjective Progress Note Date: 01/16/24 Patient is on room air, but still quite tachypneic/tachycardic with exercise/exertion. Denies fevers, chills, chest pain. Gen: In NAD, non-toxic HEENT: normocephalic, atraumatic, hearing acuity is intant, mucous membranes moist CVS: perfusing all extremities well, no pitting edema, Respiratory: symmetric chest expansion, no accessory muscle use, diffuse wheezing GI: soft, NTTP, ND, : no suprapubic tenderness, no CVA tenderness MSK/Derm: no rashes, cyanosis Neuro: CN II-XII intact, no motor weakness, Psych: cooperative, euthymic mood, judgment and insight is intact Hospital course: 39-year-old female with PMH of asthma, depression and dystonia presents the ED for shortness of breath. She was seen at urgent care on December 26 for cough, started on steroids and azithromycin. Initially improved but her cough returned along with SOB and wheezing not relieved with nebulized treatments at home which prompted her to come to the ED today. Cough is productive of sputum not able to describe. Never been intubated. Non smoker. In the ED, she underwent extensive evaluation. BP 126/75, HR 90, RR 20, T 98.3F, 93% on RA. CBC and BMP done significant for WBC count 13.1 with neutrophilia. Chest x-ray unremarkable. Patient is admitted for asthma exacerbation with pulmonology in consultation. Started on bronchodilators and steroids. Pulmonary consulted. 01/13 Patient was seen and examined. Slightly improved breathing, not quite back to baseline. Chest still feels tight. Remains tachycardic with HR in the low 100s and 91% on 3L. D-Dimer negative. Phos 1.4. Mag 2.6. Discussed with Dr. Bernardino lehman, continue present management. Assessment/plan: Asthma exacerbation: -DuoNeb QID scheduled and Q2H PRN for SOB/wheezing. -Solumedrol 60 mg IV Q8H. Symbicort 2 puff BID. -Add Singulair 10 mg PO QD. -Telemetry monitoring. -Pulmonary on board. Obesity: -Structured weight loss program. Chronic conditions: Depression, Dystonia CODE STATUS: FULL CODE. DVT Prophylaxis: SCD GI Prophylaxis: Protonix PO Designated medical POA if patient is not able to make medical decisions for themselves: Objective - Vital Signs Vital signs: Vital Signs Temp 97.8 F 01/16/24 14:00 Pulse 78 01/16/24 14:00 Resp 18 01/16/24 14:00 BP 97/62 01/16/24 14:00 Pulse Ox 97 01/16/24 14:00 FiO2 Intake & Output 01/15/24 01/16/24 01/16/24 18:59 06:59 18:59 Intake Total 1500 Output Total 4 Balance 1496 Intake: Oral 1500 Output: Urine 4 Other: Voiding Method Toilet Toilet # Voids 4 - Labs CBC & Chem 7: 01/16/24 07:12 01/16/24 07:12 Labs: Abnormal Lab Results - Last 24 Hours (Table) 01/16/24 01/16/24 Range/Units 07:12 07:12 WBC 20.5 H (3.8-10.6) k/uL Neutrophils # 18.3 H (1.3-7.7) k/uL Glucose 118 H (74-99) mg/dL Magnesium 2.5 H (1.6-2.3) mg/dL
--- NOTE | 2024-01-16 16:12 | P.PN ---
Subjective Progress Note Date: 01/16/24 This is a 39-year-old female patient with known history of bronchial asthma that has been essentially mild intermittent in nature and the patient has been utilizing for rescue needed on as-needed basis. She has not been maintained on regular asthma medication. No intake of any inhaled corticosteroids on outpatient basis. She is a non-smoker. She has noted environmental allergies mainly towards animal dander and dust and mold and grass. She has several pets at home including cats. The patient started getting sick approximately 3 weeks ago. She was trying to find an outpatient basis. She has been seen in urgent care and no definitive treatment has been offered. She had albuterol requiremen ts has been significantly increased. She came into the emergency for further evaluation and the patient was hospitalized for an acute asthma exacerbation as the patient was found to be acutely bronchospastic and wheezy. Chest x-ray showed no acute cardiopulmonary abnormalities. The patient has a white cell count of 17.0 and hemoglobin 13.7. Sodium is at 139 with a potassium level is 3.6 and a BUN of 11 with a creatinine of 0.6. Viral panel has been negative. D-dimer is at 0.37. The patient is currently on bronchodilators and steroids. She is known to have dystonia maintained on Sinemet. No previous hospitalization due to asthma related complications. No previous steroid intake. No previous history of intubation or mechanical ventilation related to asthma. No recurrent pneumonias. On today's evaluation of 01/14/2024, the patient is feeling better and less short of breath compared to yesterday. There has been some modest improvement since yesterday. She was hospitalized for an acute asthma exacerbation that has failed outpatient treatment and the patient is having to be treated with a combination of bronchodilators and steroids. She is currently on Solu-Medrol 60 mg every 6 hours. She was also started on Symbicort as maintenance. Viral screen has been negative. D-dimer is at 0.37. No other new complaints otherwise for now. Oxygenation is still impaired and the patient remains on 3 L to maintain a saturation above 90%. Extensively bronchospastic and wheezy on today's evaluation with some modest improvement On today's evaluation of 01/15/2024, the patient is feeling slightly improved compared to yesterday. No new complaints otherwise for now. Remains on the same management of bronchodilators and steroids. D-dimer is at 0.37. Viral panel has been negative. Remains on IV Solu-Medrol 60 mg every 6 hours. Remains on DuoNeb. She is currently on room air oxygen as the patient is being treated for an acute asthma exacerbation. Pulse ox is 93% room air oxygen. On today's evaluation of 01/16/2024, the patient is doing better. She is ambulating. She is on room air oxygen. Not fully recovered yet. No new complaints otherwise for now. White cell count is at 20.5 and he was 13.5. Electrolytes are all within normal limits. Pulse ox is 97% on room air oxygen. Remains on bronchodilators, Symbicort and IV Solu-Medrol 60 mg every 6 hours Objective - Vital Signs Vital signs: Vital Signs Temp 97.8 F 01/16/24 07:34 Pulse 80 01/16/24 09:36 Resp 17 01/16/24 07:34 BP 126/74 01/16/24 07:34 Pulse Ox 97 01/16/24 09:21 FiO2 Intake & Output 01/15/24 01/16/24 01/16/24 18:59 06:59 18:59 Intake Total 1500 Output Total 4 Balance 1496 Intake: Oral 1500 Output: Urine 4 Other: Voiding Method Toilet Toilet # Voids 4 - Exam General appearance the patient is calm and comfortable no acute distress. Not using accessory muscles of breathing. Head exam was generally normal. There was no scleral icterus or corneal arcus. Mucous membranes were moist. Neck was supple and without jugular venous distension, thyromegaly, or carotid bruits. Carotids were easily palpable bilaterally. There was no adenopathy. Lung sounds are diminished and the patient has scattered diffuse expiratory wheezes throughout the lung mcdaniels bilaterally. Cardiac exam revealed the PMI to be normally situated and sized. The rhythm was regular and no extrasystoles were noted during several minutes of auscultation. The first and second heart sounds were normal and physiologic splitting of the second heart sound was noted. There were no murmurs, rubs, clicks, or gallops. Abdominal exam revealed normal bowel sounds. The abdomen was soft, non-tender, and without masses, organomegaly, or appreciable enlargement of the abdominal aorta. Examination of the extremities revealed easily palpable radial, femoral and pedal pulses. There was no cyanosis, clubbing or edema. Examination of the skin revealed no evidence of significant rashes, suspicious appearing nevi or other concerning lesions. Neurologically, the patient is awake and alert and the patient does not have any focal neurological deficit. Cranial nerves are essentially intact. - Labs CBC & Chem 7: 01/16/24 07:12 01/16/24 07:12 Labs: Abnormal Lab Results - Last 24 Hours (Table) 01/16/24 Range/Units 07:12 WBC 20.5 H (3.8-10.6) k/uL Neutrophils # 18.3 H (1.3-7.7) k/uL Assessment and Plan Plan: Acute exacerbation of mild intermittent bronchial asthma. Exact cause is not clear. Viral panel has been negative and the patient has been symptomatic for the past several weeks time and she failed outpatient treatment. Chest x-ray shows no evidence of any acute cardiopulmonary process. Will continue same treatment for now. Slowly improving. Acute on chronic shortness of breath secondary to asthma exacerbation Acute hypoxic respiratory failure secondary to above, patient is currently on room air oxygen. Known history of developmental allergies. No nasal polyposis. No eczema. Dystonia, history of and the patient has been maintained on Sinemet Plan Patient is currently on room air oxygen Continues to improve clinically Less bronchospastic and wheezy Continue bronchodilators IV Solu-Medrol 60 mg every 6 hours [id number] 4 times a day Continue Symbicort maintenance 160/4.5, 2 puffs twice a day Will need further workup on outpatient basis regarding her asthma. Will further establish her asthmatic endotype and modify treatment accordingly Will continue to follow.
[2024-01-17 08:47] VITALS: RESP 20
[2024-01-17] MEDS: MONTELUKAST 10 MG TAB PO SCH (11:50)
--- NOTE | 2024-01-17 12:00 | P.DS ---
Providers Date of admission: 01/13/24 17:25 Expected date of discharge: 01/17/24 Attending physician: Nancy White MD Consults: 01/13/24 15:29 Consult Physician Urgent Consulting Provider: Mario Cuello Consult Reason/Comments: Asthma exacerbation Do you want consulting provider notified?: Yes Primary care physician: Brittani Naqvi, Hospital Course: Asthma exacerbation: Obesity: Depression Dystonia Gen: In NAD, non-toxic HEENT: normocephalic, atraumatic, hearing acuity is intant, mucous membranes moist CVS: perfusing all extremities well, no pitting edema, Respiratory: symmetric chest expansion, no accessory muscle use, diffuse wheezing GI: soft, NTTP, ND, : no suprapubic tenderness, no CVA tenderness MSK/Derm: no rashes, cyanosis Neuro: CN II-XII intact, no motor weakness, Psych: cooperative, euthymic mood, judgment and insight is intact Hospital course: 39-year-old female with PMH of asthma, depression and dystonia presents the ED for shortness of breath. She was seen at urgent care on December 26 for cough, started on steroids and azithromycin. Initially improved but her cough returned along with SOB and wheezing not relieved with nebulized treatments at home which prompted her to come to the ED today. Cough is productive of sputum not able to describe. Never been intubated. Non smoker. In the ED, she underwent extensive evaluation. BP 126/75, HR 90, RR 20, T 98.3F, 93% on RA. CBC and BMP done significant for WBC count 13.1 with neutrophilia. Chest x-ray unremarkable. Patient is admitted for asthma exacerbation with pulmonology in consultation. Started on bronchodilators and steroids. Pulmonary consulted. 01/13 Patient was seen and examined. Slightly improved breathing, not quite back to baseline. Chest still feels tight. Remains tachycardic with HR in the low 100s and 91% on 3L. D-Dimer negative. Phos 1.4. Mag 2.6. Discussed with Dr. Cuello, continue present management. 01/14-01/16: Pt gradually improved off of oxygen to room air, and bronchospastic lung sounds resolved. Her dyspnea on exertion improved. Discharged home with PCP and pulmonology f/u - new medications for symbicort, singulair, prednisone taper. I spent 32 minutes coordinating this discharge on 01/16 Patient Condition at Discharge: Good Plan - Discharge Summary New Discharge Prescriptions: New predniSONE [Deltasone] See Rx Instructions .ROUTE .COMPLEX #15 tab Budesonide-Formot 160-4.5 Mcg [Symbicort 160-4.5 Mcg Inhaler] 2 puff INHALATION RT-BID #1 each Acetaminophen Tab [Tylenol] 650 mg PO Q6HR PRN tab PRN Reason: Mild Pain Or Fever > 100.5 Montelukast [Singulair] 10 mg PO DAILY #30 tab Continue guaiFENesin SYRUP 100MG/5ML [Robitussin] 200 mg PO Q6H PRN PRN Reason: Cough Sertraline [Zoloft] 100 mg PO DAILY Albuterol Sulfate [Ventolin HFA] 2 puff INHALATION RT-Q4H PRN PRN Reason: Shortness Of Breath Albuterol Nebulized [Ventolin Nebulized] 2.5 mg INHALATION RT-QID PRN PRN Reason: Shortness Of Breath Carbidopa/Levodopa [Carbidopa-Levodopa 10-100 Tab] 1 tab PO DAILY Cetirizine HCl [Zyrtec] 10 mg PO DAILY Carbidopa-Levodopa 10-100 mg [Sinemet 10-100 mg] 1 tab PO HS PRN PRN Reason: Muscle Disorder Promethazine HCl [Phenergan Syrup] 6.25 mg PO Q6HR PRN PRN Reason: Cough Discharge Medication List Carbidopa/Levodopa [Carbidopa-Levodopa 10-100 Tab] 1 tab PO DAILY 02/01/21 [History] Albuterol Nebulized [Ventolin Nebulized] 2.5 mg INHALATION RT-QID PRN 01/13/24 [History] Albuterol Sulfate [Ventolin HFA] 2 puff INHALATION RT-Q4H PRN 01/13/24 [History] Carbidopa-Levodopa 10-100 mg [Sinemet 10-100 mg] 1 tab PO HS PRN 01/13/24 [History] Cetirizine HCl [Zyrtec] 10 mg PO DAILY 01/13/24 [History] Promethazine HCl [Phenergan Syrup] 6.25 mg PO Q6HR PRN 01/13/24 [History] Sertraline [Zoloft] 100 mg PO DAILY 01/13/24 [History] guaiFENesin SYRUP 100MG/5ML [Robitussin] 200 mg PO Q6H PRN 01/13/24 [History] Acetaminophen Tab [Tylenol] 650 mg PO Q6HR PRN tab 01/17/24 [Rx] Budesonide-Formot 160-4.5 Mcg [Symbicort 160-4.5 Mcg Inhaler] 2 puff INHALATION RT-BID #1 each 01/17/24 [Rx] Montelukast [Singulair] 10 mg PO DAILY #30 tab 01/17/24 [Rx] predniSONE [Deltasone] See Rx Instructions .ROUTE .COMPLEX #15 tab 01/17/24 [Rx] Follow up Appointment(s)/Referral(s): Brittani Naqvi DO [Primary Care Provider] - 1-2 days Mario Cuello MD [STAFF PHYSICIAN] - 1 Week Discharge Disposition: HOME SELF-CARE
--- NOTE | 2024-01-17 14:04 | P.PN ---
Subjective Progress Note Date: 01/17/24 This is a 39-year-old female patient with known history of bronchial asthma that has been essentially mild intermittent in nature and the patient has been utilizing for rescue needed on as-needed basis. She has not been maintained on regular asthma medication. No intake of any inhaled corticosteroids on outpatient basis. She is a non-smoker. She has noted environmental allergies mainly towards animal dander and dust and mold and grass. She has several pets at home including cats. The patient started getting sick approximately 3 weeks ago. She was trying to find an outpatient basis. She has been seen in urgent care and no definitive treatment has been offered. She had albuterol requiremen ts has been significantly increased. She came into the emergency for further evaluation and the patient was hospitalized for an acute asthma exacerbation as the patient was found to be acutely bronchospastic and wheezy. Chest x-ray showed no acute cardiopulmonary abnormalities. The patient has a white cell count of 17.0 and hemoglobin 13.7. Sodium is at 139 with a potassium level is 3.6 and a BUN of 11 with a creatinine of 0.6. Viral panel has been negative. D-dimer is at 0.37. The patient is currently on bronchodilators and steroids. She is known to have dystonia maintained on Sinemet. No previous hospitalization due to asthma related complications. No previous steroid intake. No previous history of intubation or mechanical ventilation related to asthma. No recurrent pneumonias. On today's evaluation of 01/14/2024, the patient is feeling better and less short of breath compared to yesterday. There has been some modest improvement since yesterday. She was hospitalized for an acute asthma exacerbation that has failed outpatient treatment and the patient is having to be treated with a combination of bronchodilators and steroids. She is currently on Solu-Medrol 60 mg every 6 hours. She was also started on Symbicort as maintenance. Viral screen has been negative. D-dimer is at 0.37. No other new complaints otherwise for now. Oxygenation is still impaired and the patient remains on 3 L to maintain a saturation above 90%. Extensively bronchospastic and wheezy on today's evaluation with some modest improvement On today's evaluation of 01/15/2024, the patient is feeling slightly improved compared to yesterday. No new complaints otherwise for now. Remains on the same management of bronchodilators and steroids. D-dimer is at 0.37. Viral panel has been negative. Remains on IV Solu-Medrol 60 mg every 6 hours. Remains on DuoNeb. She is currently on room air oxygen as the patient is being treated for an acute asthma exacerbation. Pulse ox is 93% room air oxygen. On today's evaluation of 01/16/2024, the patient is doing better. She is ambulating. She is on room air oxygen. Not fully recovered yet. No new complaints otherwise for now. White cell count is at 20.5 and he was 13.5. Electrolytes are all within normal limits. Pulse ox is 97% on room air oxygen. Remains on bronchodilators, Symbicort and IV Solu-Medrol 60 mg every 6 hours On today's evaluation of 01/17/2024, the patient is feeling great and she is ready for discharge. No significant cough sputum production chest tightness or wheezing. No other new complaints otherwise for now. No new labs are available from today. Nevertheless, the patient is feeling well. Objective - Vital Signs Vital signs: Vital Signs Temp 97.7 F 01/17/24 07:41 Pulse 61 01/17/24 07:41 Resp 20 01/17/24 07:41 BP 108/88 01/17/24 07:41 Pulse Ox 93 L 01/17/24 09:42 FiO2 Intake & Output 01/16/24 01/17/24 01/17/24 18:59 06:59 18:59 Other: Voiding Method Toilet # Voids 4 - Exam General appearance the patient is calm and comfortable no acute distress. Not using accessory muscles of breathing. Head exam was generally normal. There was no scleral icterus or corneal arcus. Mucous membranes were moist. Neck was supple and without jugular venous distension, thyromegaly, or carotid bruits. Carotids were easily palpable bilaterally. There was no adenopathy. Lung sounds are diminished and the patient has scattered diffuse expiratory wheezes throughout the lung mcdaniels bilaterally. Cardiac exam revealed the PMI to be normally situated and sized. The rhythm was regular and no extrasystoles were noted during several minutes of auscultation. The first and second heart sounds were normal and physiologic splitting of the second heart sound was noted. There were no murmurs, rubs, clicks, or gallops. Abdominal exam revealed normal bowel sounds. The abdomen was soft, non-tender, and without masses, organomegaly, or appreciable enlargement of the abdominal aorta. Examination of the extremities revealed easily palpable radial, femoral and pe isidoro pulses. There was no cyanosis, clubbing or edema. Examination of the skin revealed no evidence of significant rashes, suspicious appearing nevi or other concerning lesions. Neurologically, the patient is awake and alert and the patient does not have any focal neurological deficit. Cranial nerves are essentially intact. - Labs CBC & Chem 7: 01/16/24 07:12 01/16/24 07:12 Labs: Abnormal Lab Results - Last 24 Hours (Table) 01/16/24 Range/Units 07:12 Glucose 118 H (74-99) mg/dL Magnesium 2.5 H (1.6-2.3) mg/dL Assessment and Plan Plan: Acute exacerbation of mild intermittent bronchial asthma. Exact cause is not clear. Viral panel has been negative and the patient has been symptomatic for the past several weeks time and she failed outpatient treatment. Chest x-ray shows no evidence of any acute cardiopulmonary process. Will continue same treatment for now. Clinically improved and the patient is back to her baseline. Acute on chronic shortness of breath secondary to asthma exacerbation Acute hypoxic respiratory failure secondary to above, patient is currently on room air oxygen. Known history of developmental allergies. No nasal polyposis. No eczema. Dystonia, history of and the patient has been maintained on Sinemet Plan Discharge the patient home on a prednisone burst taper, Symbicort as maintenance, albuterol nebulized treatments and updrafts and HFA on an as-needed basis to be followed up in the office. Clinically improved. Will follow on outpatient basis.
[2024-01-17 15:06] VITALS: BP 112/77; PULSE 64; TEMP 97.1
== END 2024-01-17 14:17 | disposition home or self-care (01) | DRG 190 ==
LOC: EC 11:24 → 4SSUR 17:24 → OBSVTOIN 17:25 → 4SSUR 17:49
PROVIDERS: ADMIT Family Medicine; ATTEND Family Medicine
DX: J44.1 Chronic obstructive pulmonary disease with (acute) exacerbation (principal); J96.01 Acute respiratory failure with hypoxia; J45.901 Unspecified asthma with (acute) exacerbation; F32.A Depression, unspecified; G24.9 Dystonia, unspecified; E66.9 Obesity, unspecified; T38.0X5A Adverse effect of glucocorticoids and synthetic analogues, initial encounter; F41.9 Anxiety disorder, unspecified; Z79.51 Long term (current) use of inhaled steroids; Z79.899 Other long term (current) drug therapy; X58.XXXA Exposure to other specified factors, initial encounter; Z68.33 Body mass index [BMI] 33.0-33.9, adult; Z71.3 Dietary counseling and surveillance
CPT/HCPCS: 36415; 71046; 80048; 83735; 84100; 85025; 85379; 87636; 94640; 94760; 96365; 96366; 96372; 96375; 99285

== ENCOUNTER → 2024-11-08 | Outpatient (CLI) | payer OTHER ==
--- NOTE | 2024-11-08 10:12 | MR ---
EXAMINATION TYPE: MR brain wo/w con DATE OF EXAM: 11/08/2024 8:19 AM COMPARISON: None. CLINICAL INDICATION: Female, 39 years old with history of G43.709 CHRONIC MIGRAINE W/O AURA, NOT INTR ACTABLE, Migraine. TECHNIQUE: Multiplanar, multiecho imaging on a 3.0 Jennyfer magnet is performed through the brain. Stud y is performed within 24 hours of arrival to the hospital.Multiplanar, multiecho imaging on a 3.0 Zhanna la magnet is performed through the knee. IV Contrast: 9 mL Gadobutrol (None, if empty) FINDINGS: The craniovertebral junction is normal. The pituitary is normal. Diffusion-weighted imaging is performed. No abnormal hyperintensity is present to suggest an acute i ntracranial infarct or acute ischemic change. No suspicious punctate hyperintensities to suggest radiographic changes from migraine headaches. Sign al within the brain appears normal. Following contrast administration, no abnormal enhancement is evident Ventricles and sulci are appropriate for the patient age. IMPRESSION: 1. No suspicious changes to suggest radiographic changes from migraine headaches. 2. No acute intracranial processes pre or postcontrast MRI [facility], , 11/08/2024 10:10 AM
== END | disposition home or self-care (01) ==
LOC: RADMRIMAIN 07:23
PROVIDERS: ATTEND Psychiatry & Neurology Neurology
DX: G43.709 Chronic migraine without aura, not intractable, without status migrainosus (principal)
CPT/HCPCS: 70553; A9585